=== PATIENT | female | born 1975 | race American Indian/Alaskan Native ===

== ENCOUNTER 2017-10-05 17:58 | Emergency (ER) | payer OTHER ==
[2017-10-05 18:47] LABS: Alanine Aminotransferase 88 units/L (7-56); Albumin 3.6 g/dL (3.9-5); Alkaline Phosphatase 97 units/L (35-129); Anion Gap 17 mmol/L; BUN/Creatinine Ratio 15; Blood Urea Nitrogen 9 mg/dL (7-17); Calcium 8.8 mg/dL (8.4-10.2); Carbon Dioxide 24 mmol/L (22-30); Chloride 101.4 mmol/L (98-107); Glucose 88 mg/dL (65-100); Lipase 42 units/L (13-60); Potassium 4.3 mmol/L (3.6-5.0); Sodium 138 mmol/L (137-145); Total Protein 7.3 g/dL (6.3-8.2)
[2017-10-05] MEDS ORDERED: NACL 0.9% 1000 ML 1,000 ML IV ONE (18:52)
[2017-10-05] MEDS ORDERED: MORPHINE IV ONE (18:52)
[2017-10-05] MEDS ORDERED: ZOFRAN IV ONE (18:52)
--- NOTE | 2017-10-05 18:57 | Emergency Department Report ---
ED Abdominal Pain HPI - General Chief Complaint: Abdominal Pain Stated Complaint: ABD PAIN RT SIDE Time Seen by Provider: 10/05/17 18:47 Source: patient Mode of arrival: Ambulatory Limitations: No Limitations - History of Present Illness Initial Comments: Patient is 42 years old female history of high blood pressure presented today with a 2 day history of right upper quadrant pain and fever nausea and vomiting. Patient denied any diarrhea. MD Complaint: abdominal pain Location: RUQ Migration to: no migration Quality: sharp Consistency: intermittent Worsens With: eating Associated Symptoms: nausea, vomiting - Related Data Allergies Allergy/AdvReac Type Severity Reaction Status Date / Time Penicillins Allergy Unknown Verified 10/05/17 18:00 ED Review of Systems ROS: Stated complaint: ABD PAIN RT SIDE Other details as noted in HPI Comment: All other systems reviewed and negative Constitutional: fever. denies: chills Respiratory: cough, shortness of breath. denies: orthopnea, SOB with exertion, SOB at rest Cardiovascular: denies: chest pain, palpitations Gastrointestinal: abdominal pain, nausea, vomiting. denies: diarrhea, constipation, hematemesis, hematochezia Genitourinary: denies: urgency, dysuria Musculoskeletal: denies: back pain Neurological: denies: headache, weakness ED Past Medical Hx - Past Medical History Hx Hypertension: Yes Hx Asthma: Yes - Surgical History Past Surgical History?: Yes Additional Surgical History: left wrist surgery, gastric sleeve surgery 2014 - Social History Smoking Status: Never Smoker Substance Use Type: Alcohol ED Physical Exam - General Limitations: No Limitations General appearance: alert, in no apparent distress - Head Head exam: Present: normocephalic - Eye Eye exam: Present: normal appearance, PERRL - ENT ENT exam: Present: normal exam, normal orophraynx, mucous membranes dry - Neck Neck exam: Present: normal inspection, full ROM. Absent: tenderness, meningismus - Respiratory Respiratory exam: Present: normal lung sounds bilaterally. Absent: respiratory distress, wheezes, rales, rhonchi, chest wall tenderness, accessory muscle use, decreased breath sounds, prolonged expiratory - Cardiovascular Cardiovascular Exam: Present: regular rate, normal rhythm, normal heart sounds - GI/Abdominal GI/Abdominal exam: Present: soft, normal bowel sounds. Absent: distended, tenderness, guarding, rebound, rigid, organomegaly, mass, bruit, pulsatile mass , hernia - Extremities Exam Extremities exam: Present: normal inspection, full ROM, normal capillary refill - Back Exam Back exam: Present: normal inspection. Absent: CVA tenderness (R), CVA tenderness (L) - Neurological Exam Neurological exam: Present: alert, oriented X3, CN II-XII intact, normal gait - Skin Skin exam: Present: warm, intact, normal color ED Course Vital Signs 10/05/17 10/05/17 10/05/17 18:00 18:48 18:54 Temperature 99.6 F 99.1 F Pulse Rate 82 69 66 Respiratory 17 20 14 Rate Blood Pressure 167/113 Blood Pressure 161/97 [Right] O2 Sat by Pulse 98 97 Oximetry 10/05/17 10/05/17 10/05/17 19:28 19:30 19:46 Temperature Pulse Rate 68 56 L 56 L Respiratory 14 13 Rate Blood Pressure 161/97 156/97 156/99 Blood Pressure [Right] O2 Sat by Pulse 98 99 99 Oximetry 10/05/17 10/05/17 10/05/17 20:00 20:15 20:30 Temperature Pulse Rate 55 L 62 69 Respiratory 11 L 11 L 10 L Rate Blood Pressure 156/99 161/97 156/109 Blood Pressure [Right] O2 Sat by Pulse 99 97 Oximetry 10/05/17 10/05/17 10/05/17 20:38 21:15 21:31 Temperature Pulse Rate 53 L 50 L Respiratory 18 9 L 11 L Rate Blood Pressure 144/97 139/91 Blood Pressure [Right] O2 Sat by Pulse 99 99 Oximetry 10/05/17 10/05/17 21:45 22:00 Temperature Pulse Rate 56 L 55 L Respiratory 11 L 11 L Rate Blood Pressure 156/109 141/88 Blood Pressure [Right] O2 Sat by Pulse 95 98 Oximetry - Reevaluation(s) Reevaluation #1: 10/06/17 00:48 Patient stated that she is feeling much better. No abdominal pain, no fever, no vomiting. I informed the patient about her abdominal ultrasound she so a gallbladder stones with possible early cholecystitis even though patient has a negative Shipley sign and no white count. I gave the patient the follow-up is Dr. Almodovar from surgery for further workup. ED Medical Decision Making - Lab Data Result diagrams: 10/05/17 18:15 10/05/17 18:15 - Radiology Data Radiology results: report reviewed Ultrasound abdomen showed a slightly wall thickened gallbladder with cholelithiasis possibility of cholecystitis. CTA of the chest no pulmonary embolism. Critical care attestation.: If time is entered above; I have spent that time in minutes in the direct care of this critically ill patient, excluding procedure time. ED Disposition Clinical Impression: Abdominal pain, Gallbladder calculus Disposition: [id number] TO HOME OR SELFCARE Is pt being admited?: No Condition: Stable Instructions: Biliary Colic (ED), Abdominal Pain (ED) Referrals: DOMINIQUE ALMODOVAR MD [Staff Physician] - 24 Hours
[2017-10-05 18:59] LABS: Basophils % (Auto) 0.4 % (0.0-1.8); Eosinophils % (Auto) 1.1 % (0.0-4.3); Hematocrit 39.9 % (30.3-42.9); Hemoglobin 12.8 gm/dl (10.1-14.3); Mean Corpuscular HGB Conc 32 % (30-34); Mean Corpuscular Hemoglobin 27 pg (28-32); Mean Corpuscular Volume 85 fl (79-97); Platelet Count 232 K/mm3 (140-440); Red Cell Distribution Width 16.3 % (13.2-15.2); White Blood Count 8.4 K/mm3 (4.5-11.0)
[2017-10-05 21:45] LABS: Bilirubin,Urine NEG (Negative); Blood,Urine MOD (Negative); Ketones,Urine TR mg/dL (Negative); Leukocyte Esterase,Urine NEG (Negative); Mucus,Urine FEW /HPF; Nitrite,Urine NEG (Negative); Protein,Urine <15 mg/dL mg/dL (Negative)
[2017-10-05] MEDS ORDERED: NACL ONE (22:15)
[2017-10-05 23:01] VITALS: BP 141/88
--- NOTE | 2017-10-06 00:01 | XRay Report ---
FINAL REPORT PROCEDURE: XR CHEST ROUTINE 2V TECHNIQUE: Two views of the chest are obtained HISTORY: chest pain COMPARISON: No prior studies are available for comparison. FINDINGS: The heart is normal in size. There is no focal infiltrate, pneumothorax or pleural effusion. Moderate scoliosis is seen. IMPRESSION: There is moderate scoliosis.
--- NOTE | 2017-10-06 00:01 | Ultrasound Report ---
FINAL REPORT PROCEDURE: US ABDOMEN LIMITED TECHNIQUE: Real-time sonography was performed of the right upper quadrant of the abdomen with image documentation. CPT 17129 HISTORY: RUQ PAIN AND FEVER COMPARISON: No prior studies are available for comparison. FINDINGS: Proximal abdominal aorta is normal in size. Right kidney measures 9.8 cm in length and displays no abnormalities. Limited views of the pancreas display no abnormalities. Most of the pancreas is not well visualized. Mild cholelithiasis is seen with likely wall thickening, suggesting cholecystitis. Common bile duct measures 6.3 millimeters in diameter, mildly enlarged. Mild intrahepatic biliary ductal dilation may be present. IMPRESSION: Cholelithiasis and cholecystitis are suggested. Mild common bile duct dilation is seen. Further evaluation with MRCP is suggested to evaluate for any ductal stone.
--- NOTE | 2017-10-06 00:20 | Cat Scan Report ---
FINAL REPORT PROCEDURE: CT ANGIO CHEST TECHNIQUE: Computerized tomographic angiography of the chest was performed after the IV injection of iodinated nonionic contrast including image processing. The image data was postprocessed using 2-dimensional multiplanar reformatted (MPR) and 3-dimensional (MIP and/or volume rendered) techniques. HISTORY: CHEST PAIN WITH ELEVATED D-DIMER COMPARISON: Chest x-ray from the same day FINDINGS: Comment mild hypoventilatory changes are seen in the lower lungs. Mild residual thymic tissue is seen in the anterior mediastinum. There is cardiomegaly and possible CHF. No mediastinal lymphadenopathy is seen. Thoracic aorta is normal in size without evidence of dissection. No pulmonary embolus is seen. Images through the upper abdomen show mild changes of cholecystitis, as seen on ultrasound abdomen from the same day. IMPRESSION: Likely CHF is present. No pulmonary embolus is seen.
[2017-10-06] MEDS ORDERED: LEVAQUIN PO ONE (00:57)
== END 2017-10-06 01:46 | disposition home or self-care (01) ==
LOC: ED 17:58
DX: K80.20 Calculus of gallbladder without cholecystitis without obstruction (principal); R10.11 Right upper quadrant pain; J45.909 Unspecified asthma, uncomplicated; I10 Essential (primary) hypertension; Z88.0 Allergy status to penicillin
CPT/HCPCS: 36415; 71020; 71275; 76705; 80053; 81001; 83690; 84703; 85025; 85379; 96361; 96374; 96375; 99284; J2270; J2405; J7030; Q9967